=== PATIENT | female | born 1985 | race Caucasian/White ===

== ENCOUNTER 2017-01-15 01:58 | Emergency (ER) | payer OTHER ==
[2017-01-15 02:07] VITALS: BP 153/93
[2017-01-15] MEDS ORDERED: Ibuprofen TAB* 400 MG PO ONE (02:16)
[2017-01-15] MEDS ORDERED: Amoxicillin/Clavulanate TAB* 875 MG PO ONE (02:16)
--- NOTE | 2017-01-15 03:15 | ED ---
Misael Milner Adam, scribed for Mumtaz Infanteuel on 01/15/17 at 0219 . Throat Pain/Nasal Congestion - HPI Summary HPI Summary: Pt is a 31 year old female presenting with sore throat and left ear complaint. She has had a worsening sore throat for several days with difficulty swallowing. At 00:00 this morning she developed pain in the left side of her face and she states that she can not hear out of her left ear. She also c/o jaw pain and some SOB. She denies CP and fever. PMHx of HTN (controlled). No tobacco /alcohol use. - History of Current Complaint Chief Complaint: EDFluSymptoms Time Seen by Provider: 01/15/17 02:11 Hx Obtained From: Patient Onset/Duration: Gradual Onset, Lasting Days, Still Present Severity: Moderate Associated Signs And Symptoms: Positive: Dysphagia - Sore throat with difficulty swallowing. - Allergies/Home Medications Allergies/Adverse Reactions: Allergies Allergy/AdvReac Type Severity Reaction Status Date / Time No Known Allergies Allergy Verified 05/15/13 17:32 PMH/Surg Hx/FS Hx/Imm Hx Endocrine/Hematology History: Denies: Hx Diabetes, Hx Thyroid Disease Cardiovascular History: Reports: Hx Hypertension Respiratory History: Denies: Hx Asthma, Hx Chronic Obstructive Pulmonary Disease (COPD) GI History: Denies: Hx Ulcer Infectious Disease History: No Infectious Disease History: Denies: Hx Hepatitis, Hx Human Immunodeficiency Virus (HIV), Traveled Outside the [place] in Last 30 Days - Family History Known Family History: Positive: Hypertension - Social History Occupation: Employed Full-time Lives: With Family - Male friend Alcohol Use: Rare Hx Substance Use: No Substance Use Type: Reports: None Hx Tobacco Use: No Smoking Status (MU): Never Smoked Tobacco Review of Systems Negative: Fever Positive: Sore Throat - With difficulty swallowing, Ear Ache Negative: Chest Pain Positive: Shortness Of Breath Positive: Myalgia - Pain in left side of face and jaw All Other Systems Reviewed And Are Negative: Yes Physical Exam Triage Information Reviewed: Yes Vital Signs On Initial Exam: Initial Vitals Temp Pulse Resp BP Pulse Ox 98.1 F 91 18 153/93 98 01/15/17 02:02 01/15/17 02:02 01/15/17 02:02 01/15/17 02:02 01/15/17 02:02 Vital Signs Reviewed: Yes Appearance: Positive: Well-Appearing, No Pain Distress Skin: Positive: Warm, Skin Color Reflects Adequate Perfusion, Dry Head/Face: Positive: Normal Head/Face Inspection Eyes: Positive: EOMI, GENE ENT: Positive: Other - Left ear has swollen lymph nodes. Left ear is erythematous. TM red. Otitis. Neck: Positive: Supple, Nontender Respiratory/Lung Sounds: Positive: Clear to Auscultation, Breath Sounds Present Cardiovascular: Positive: RRR, Pulses are Symmetrical in both Upper and Lower Extremities Abdomen Description: Positive: Nontender, Soft Bowel Sounds: Positive: Present Musculoskeletal: Positive: Normal, Strength/ROM Intact Neurological: Positive: Normal, Sensory/Motor Intact, Alert, Oriented to Person Place, Time Diagnostics - Vital Signs Vital Signs Temp Pulse Resp BP Pulse Ox 01/15/17 02:02 98.1 F 91 18 153/93 98 - Laboratory Lab Statement: Any lab studies that have been ordered have been reviewed, and results considered in the medical decision making process. EENT Course/Dx - Diagnoses Provider Diagnoses: Otitis media Discharge - Discharge Plan Condition: Stable Disposition: HOME Prescriptions: Amoxicillin/Clavulanate TAB* [Augmentin TAB 875*] 875 mg PO BID #20 tab Ibuprofen TAB* [Motrin TAB* 600 MG] 600 mg PO Q8H PRN #20 tab PRN Reason: Pain Patient Education Materials: Otitis Media (ED) Referrals: Monica Connors MD [Primary Care Provider] - Additional Instructions: Follow up with Dr. Connors. The documentation as recorded by the Misael major Adam accurately reflects the service I personally performed and the decisions made by Arelis aviles Emmanuel.
== END 2017-01-15 02:30 | disposition home or self-care (01) ==
LOC: ED 01:58
DX: H66.90 Otitis media, unspecified, unspecified ear (principal); R13.10 Dysphagia, unspecified; J02.9 Acute pharyngitis, unspecified; R06.02 Shortness of breath; H92.09 Otalgia, unspecified ear
CPT/HCPCS: 99282; A9270-GY

== ENCOUNTER 2017-01-22 08:10 | Emergency (ER) | payer OTHER ==
[2017-01-22 08:22] VITALS: BP 132/75
--- NOTE | 2017-01-22 08:45 | UC ---
Ear Complaint HPI - HPI Summary HPI Summary: 31 yo female seen in ER with sinus symptoms and left ear pain sinuses better here because her hearing is still abnormal only mild ear pain - History of Current Complaint Chief Complaint: UCEar Stated Complaint: EAR PAIN Time Seen by Provider: 01/22/17 08:29 Hx Obtained From: Patient Hx Last Menstrual Period: [id number] Onset/Duration: Sudden Onset, Lasting Weeks Severity Initially: Severe Severity Currently: Mild Pain Intensity: 2 Pain Scale Used: 0-10 Numeric Associated Signs/Symptoms: Positive: Hearing Loss, URI Symptoms - now resolved Related History: T & A, Other (Noted In Comments) - had myringotomies - Allergies/Home Medications Allergies/Adverse Reactions: Allergies Allergy/AdvReac Type Severity Reaction Status Date / Time No Known Allergies Allergy Verified 01/22/17 08:22 Home Medications: Home Medications Ibuprofen TAB* [Motrin TAB* 800 MG] 01/22/17 [History] Lisinopril [Lisinopril 2.5 MG-] 1 01/22/17 [History] PMH/Surg Hx/FS Hx/Imm Hx Endocrine History Of: Denies: Diabetes, Thyroid Disease Cardiovascular History Of: Reports: Hypertension Denies: Cardiac Disorders Respiratory History Of: Denies: COPD, Asthma GI/ History Of: Denies: Ulcer - Surgical History Surgical History: None - Family History Known Family History: Positive: Hypertension Negative: Cardiac Disease, Diabetes - Social History Alcohol Use: Rare Substance Use Type: None Smoking Status (MU): Never Smoked Tobacco Review of Systems Constitutional: Negative Skin: Negative Eyes: Negative ENT: Ear Ache Respiratory: Negative Cardiovascular: Negative Gastrointestinal: Negative Genitourinary: Negative Motor: Negative Neurovascular: Negative Musculoskeletal: Negative Neurological: Negative Psychological: Negative All Other Systems Reviewed And Are Negative: Yes Physical Exam Triage Information Reviewed: Yes Appearance: Well-Appearing, No Pain Distress, Well-Nourished Vital Signs: Initial Vital Signs Temp 97.9 F 01/22/17 08:16 Pulse 83 01/22/17 08:16 Resp 16 01/22/17 08:16 BP 132/75 01/22/17 08:16 Pulse Ox 100 01/22/17 08:16 Vital Signs Reviewed: Yes Eyes: Positive: Conjunctiva Clear ENT: Positive: Pharynx normal, TM bulging - left bulging. Negative: Hearing grossly normal - markedly decreased hearing left ear, Nasal congestion, Nasal drainage, TMs normal - right TM scarred, TM red, Tonsillar swelling, Tonsillar exudate, Trismus, Muffled/hoarse voice Neck exam: Normal Neck: Positive: Supple, Nontender Respiratory: Positive: Lungs clear, Normal breath sounds, No respiratory distress, No accessory muscle use Cardiovascular: Positive: RRR, No Murmur Musculoskeletal: Positive: ROM Intact, No Edema Neurological: Positive: Alert Psychological Exam: Normal Skin Exam: Normal Ear Complaint Course/Dx - Differential Dx/Diagnosis Provider Diagnoses: left serous otitis media Discharge - Discharge Plan Condition: Stable Disposition: HOME Prescriptions: Prednisone [Deltasone] 20 - 40 mg PO DAILY #15 tab Patient Education Materials: Serous Otitis Media (ED) Referrals: Monica Connors MD [Primary Care Provider] - Additional Instructions: I suggest you finish your round of antibiotics on today's exam your left ear drum is not red but it is bulging this is due to fluid in your middle ear see your MD 02/04 for follow up as planned if hearing not back to normal or markedly improved you may need ENT referrral
== END 2017-01-22 08:47 | disposition home or self-care (01) ==
LOC: UCEAST 08:10
DX: H65.92 Unspecified nonsuppurative otitis media, left ear (principal); I10 Essential (primary) hypertension
CPT/HCPCS: 99212; G0463

== ENCOUNTER 2017-01-29 14:02 | Emergency (ER) | payer OTHER | END 2017-01-29 15:05 | disposition left against medical advice (07) | LOC: UCEAST 14:02 | DX: J32.9 Chronic sinusitis, unspecified (principal); H60.91 Unspecified otitis externa, right ear; H65.92 Unspecified nonsuppurative otitis media, left ear ==

== ENCOUNTER 2017-01-29 17:25 | Emergency (ER) | payer OTHER ==
[2017-01-29 18:35] VITALS: BP 152/87
--- NOTE | 2017-01-29 19:58 | UC ---
Ear Complaint HPI - HPI Summary HPI Summary: ON 01/15 GIVEN AMOXICILLIN FOR LEFT EAR INFECTION, FEELS LIKE IT WAS GETTING BETTER, 01/22 GIVEN ORAL STEROIDS 01/26/17 TAKEN OFF OF ANTIBIOTICS BY PCP AND GIVEN NASAL STEROID. LEFT EAR IS SLOWLY IMPROVING, STILL FEELS EAR FULLNESS AND SINUS PRESSURE. NOW HAVING PAIN IN RIGHT EAR. NO FEVER. NO SORE THROAT. - History of Current Complaint Chief Complaint: UCEar Stated Complaint: EAR ACHE Time Seen by Provider: 01/29/17 19:01 Hx Obtained From: Patient Hx Last Menstrual Period: 01/25/17 Onset/Duration: Gradual Onset, Lasting Weeks, Still Present Severity Initially: Moderate Severity Currently: Moderate Associated Signs/Symptoms: Positive: Hearing Loss - MUFFLED, URI Symptoms - Allergies/Home Medications Allergies/Adverse Reactions: Allergies Allergy/AdvReac Type Severity Reaction Status Date / Time No Known Allergies Allergy Verified 01/22/17 08:22 PMH/Surg Hx/FS Hx/Imm Hx Previously Healthy: Yes Endocrine History Of: Denies: Diabetes, Thyroid Disease Cardiovascular History Of: Reports: Hypertension Denies: Cardiac Disorders Respiratory History Of: Denies: COPD, Asthma GI/ History Of: Denies: Ulcer - Surgical History Surgical History: None Surgery Procedure, Year, and Place: Tonsilectomy - Family History Known Family History: Positive: Hypertension Negative: Cardiac Disease, Diabetes - Social History Occupation: Employed Full-time Lives: With Family Alcohol Use: Rare Substance Use Type: None Smoking Status (MU): Never Smoked Tobacco - Immunization History Most Recent Influenza Vaccination: denies Review of Systems Constitutional: Negative Skin: Negative Eyes: Negative ENT: Ear Ache Respiratory: Negative Cardiovascular: Negative Gastrointestinal: Negative Genitourinary: Negative Motor: Negative Neurovascular: Negative Musculoskeletal: Negative Neurological: Negative Psychological: Negative All Other Systems Reviewed And Are Negative: Yes Physical Exam Triage Information Reviewed: Yes Appearance: Well-Appearing, No Pain Distress, Well-Nourished Vital Signs: Initial Vital Signs Temp 98.2 F 01/29/17 18:27 Pulse 79 01/29/17 18:27 Resp 16 01/29/17 18:27 BP 152/87 01/29/17 18:27 Pulse Ox 100 01/29/17 18:27 Vital Signs Reviewed: Yes Eye Exam: Normal ENT: Positive: Hearing grossly normal, Pharynx normal, TM bulging, TM dull, TM red, Other: - RIGHT EAC EDEMATOUS & ERRETHEMATOUS Dental Exam: Normal Dental: Positive: Percussion Tenderness @ Neck exam: Normal Neck: Positive: Supple Respiratory Exam: Normal Respiratory: Positive: Chest non-tender, Lungs clear, Normal breath sounds, No respiratory distress, No accessory muscle use Cardiovascular Exam: Normal Cardiovascular: Positive: RRR, No Murmur, Pulses Normal Abdominal Exam: Normal Abdomen Description: Positive: Nontender, No Organomegaly Musculoskeletal Exam: Normal Musculoskeletal: Positive: Strength Intact Neurological Exam: Normal Psychological Exam: Normal Skin Exam: Normal Ear Complaint Course/Dx - Differential Dx/Diagnosis Differential Diagnosis/HQI/PQRI: Otitis Externa, Otitis Media Provider Diagnoses: SINUSITIS. LEFT OTITIS SEROUS. RIGHT OTITIS EXTERNA Discharge - Discharge Plan Condition: Stable Disposition: HOME Prescriptions: Amoxicillin/Clavulanate TAB* [Augmentin TAB 875*] 875 mg PO BID #20 tab Neomyc/Polym/HC 1% OTIC SUSP* [Cortisporin Otic Susp 1%*] 4 drop RIGHT EAR TID # 1 btl Patient Education Materials: Sinusitis (ED), Otitis Externa (ED) Referrals: Monica Connors MD [Primary Care Provider] -
== END 2017-01-29 19:30 | disposition home or self-care (01) ==
LOC: UCEAST 17:25
DX: J32.9 Chronic sinusitis, unspecified (principal); H65.92 Unspecified nonsuppurative otitis media, left ear; H60.91 Unspecified otitis externa, right ear
CPT/HCPCS: 99212; G0463

== ENCOUNTER 2018-02-28 17:56 | Emergency (ER) | payer OTHER ==
[2018-02-28 18:05] VITALS: BP 146/88
--- NOTE | 2018-02-28 18:24 | UC ---
Back Pain HPI - HPI Summary HPI Summary: 33 y/o female presents to the urgent care c/o acute lower back pain for the past week. Pt reports she can't recall any injury. However it has happened in the past 2x. She has been to the chiropractor twice this week. Last seen was 2 days ago. She feels some relief after she sees the chiropractor, but the next day her back is worse. Pain is 8/10 now, sharp w/ movement and dull 4/10 at rest. Pt has taken Ibuprofen PO to alleviate symptoms. Last dose taken this morning at 0800am. Pt denies numbness and tingling sensation over the lower extremities, saddle anesthesia, urinary or fecal incontinence, urinary symptoms , SOB, chest pain, abdominal pain, N/V/D. LMP: about 3 weeks ago and Pt declines test. - History of Current Complaint Chief Complaint: UCBackPain Stated Complaint: back pain Time Seen by Provider: 02/28/18 18:23 Hx Obtained From: Patient Hx Last Menstrual Period: 02/07/2018 Onset/Duration: Gradual Onset, Lasting Weeks - 1 week, Still Present, Worse Since - 2 days Timing: Intermittent, Lasting Minutes Severity Initially: Mild Severity Currently: Moderate Pain Intensity: 8 Pain Scale Used: 0-10 Numeric Back Pain: Is Discrete @ - lower back, Radiates To - RT side of lower back and RT hip Character: Sharp, Spasmodic Aggravating Factor(s): Movement, Lifting, Bending, Cough Alleviating Factor(s): Rest Associated Signs And Symptoms: Positive: Negative. Negative: Swelling, Redness , Fever, Weakness, Numbness, Tingling, Flank Pain, Bladder Incontinence, Bowel Incontinence, Pain with Weight Bearing - Risk Factors AAA Risk Factors: Negative TAD Risk Factors: Negative Cauda Equina Risk Factors: Negative Epidural Abscess Risk Factors: Negative - Allergies/Home Medications Allergies/Adverse Reactions: Allergies Allergy/AdvReac Type Severity Reaction Status Date / Time No Known Allergies Allergy Verified 01/22/17 08:22 Home Medications: Home Medications Azelastine/Fluticasone DILAN(NF [Dymista(NF)] 02/28/18 [History] Mometasone NASAL (NF) [Nasonex (NF)] 1 spray 02/28/18 [History] PMH/Surg Hx/FS Hx/Imm Hx Previously Healthy: Yes - Pt denies PMHX - Surgical History Surgical History: None Surgery Procedure, Year, and Place: Tonsilectomy adnoides wisdom teeth - Family History Known Family History: Positive: Hypertension Negative: Cardiac Disease, Diabetes - Social History Occupation: Employed Full-time Lives: With Family Alcohol Use: Rare Substance Use Type: None Smoking Status (MU): Never Smoked Tobacco - Immunization History Most Recent Influenza Vaccination: denies Review of Systems Constitutional: Negative Skin: Negative Eyes: Negative ENT: Negative Respiratory: Negative Cardiovascular: Negative Gastrointestinal: Negative Genitourinary: Negative Motor: Negative Neurovascular: Negative Musculoskeletal: Decreased ROM - lower back, Other: - Acue lower back pain Neurological: Negative Psychological: Negative Is Patient Immunocompromised?: No All Other Systems Reviewed And Are Negative: Yes Physical Exam - Summary Physical Exam Summary: Vital Signs Reviewed: Yes Appearance: Well-Appearing, Well-Nourished, obese female sitting in the examining table w/o any apparent distress. Eyes: Positive: Conjunctiva Clear - PERRLA, EOMI. ENT: Positive: Normal ENT inspection, Hearing grossly normal, Pharynx normal, TMs normal, Uvula midline Neck: Positive: Supple, Nontender, No Lymphadenopathy Respiratory: Positive: Chest non-tender, Lungs clear, Normal breath sounds, No respiratory distress Cardiovascular: Positive: RRR, No Murmur, Pulses Normal, Brisk Capillary Refill Abdomen Description: Positive: Nontender, No Organomegaly, Soft. Negative: CVA Tenderness (R), CVA Tenderness (L) Bowel Sounds: Positive: Present Musculoskeletal: Positive: Strength Intact, Other: - BACK: Patient walked into the urgent care room with symmetric ambulation, No signs of limping, antalgic, able to bear weight. No signs of trauma, No masses palpated. Point tenderness at the level of L3-S1 w/ Rt side paraspinal muscle spasm at the same level, No CVAT, no flank ecchymosis . No sacroiliac notch tenderness, No saddle anesthesia.ROM: limited due to pain, Straight Leg Raise: negative. Patellar reflexes: brisk, symmetric Muscle strength lower extremities. Dorsiflexion/ plantar flexion of ankles. Heel/ toe walk. Lower extremities: Femoral, popliteal , posterior tibial, and dorsalis pedis pulses WNL. Pt refuse rectal exam Neurological: Positive: Alert, Muscle Tone Normal Psychological Exam: Normal Skin Exam: Normal Triage Information Reviewed: Yes Vital Signs: Initial Vital Signs Temp 97.4 F 02/28/18 18:00 Pulse 91 02/28/18 18:00 Resp 16 02/28/18 18:00 BP 146/88 02/28/18 18:00 Pulse Ox 100 02/28/18 18:00 Back Pain Course/Dx - Course Course Of Treatment: 3 y/o female presents to the urgent care c/o acute lower back pain for the past week. Pt reports she can't recall any injury. However it has happened in the past 2x. She has been to the chiropractor twice this week. Last seen was 2 days ago. She feels some relief after she sees the chiropractor, but the next day her back is worse. Pain is 8/10 now, sharp w/ movement and dull 4/10 at rest. Pt has taken Ibuprofen PO to alleviate symptoms. Last dose taken this morning at 0800am. Pt denies numbness and tingling sensation over the lower extremities, saddle anesthesia, urinary or fecal incontinence, urinary symptoms, SOB, chest pain, abdominal pain, N/V/D. LMP: about 3 weeks ago and Pt declines test. Hx obtained. Pt w/. Point tenderness at the level of L3-S1 w/ Rt side paraspinal muscle spasm at the same level on examination. Lumbasacral X-ray ordered, Impression:Minimal Degenerative disc disease at L2-L3, L3-L4 observed. Pt given a toradol IM inj at the clinic by the nurse. Pt tolerated well IM inj and pain decrease. Pt Rx Naproxen PO, flexeril PO and Medrol dose helio. Pt also given a PT referral. Patient was instructed to the f/u wit orthopedic in 1 week if symptoms do not improve or worsen. Patient understands and agrees. Patient is able to ambulate freely w/o aid or limp. Your BP is elevated today. please decrease salt in your diet, monitor BP and if it continues to be elevated please f/u with your PCP for further management. Plan of care was discussed with the patient and patient understands and agrees. All questions were answered at patient satisfaction. Pt left clinic hemodynamically stable. - Differential Dx/Diagnosis Differential Diagnosis/HQI/PQRI: Compressive Cord Syndrome, Herniated Disc, Strain, Sprain Provider Diagnoses: 1- Acute lower back pain. 2-Back strain. 3-Degenerative disc disease L2-L3. 4- Elevated BP w/o Hx of HTN Discharge - Sign-Out/Discharge Documenting (check all that apply): Discharge/Admit/Transfer - D/C home - Discharge Plan Condition: Stable Disposition: HOME Prescriptions: Cyclobenzaprine TAB* [Flexeril 10 MG TAB*] 10 mg PO TID PRN #21 tab PRN Reason: Spasms - Back methylPREDNISolone [Medrol Dosepak 4 MG*] 4 mg PO .SEE HELIO INSTRUCTION #1 helio Naproxen TAB* [Naprosyn 250 mg TAB*] 250 mg PO Q8H PRN #30 tab PRN Reason: Pain Patient Education Materials: Acute Low Back Pain (ED), Low-Sodium Diet (ED), Muscle Spasm (ED), Degenerative Disc Disease (ED) Referrals: Daphnie Dorado MD [Medical Doctor] - 1 Week Monica Connors MD [Primary Care Provider] - 1 Week Additional Instructions: 1- Please take Naproxen PO as directed after meals for pain. 2- Take Flexeril PO as directed for muscle spasm. Please do not drive while taking the medication. 3- Wear a back support. Avoid strenuous exercise of heavy lifting. 4- Please follow up with Orthopedic Dr Dorado or your PCP in 1 week if not improvement of symptoms, for further management. 5-Your BP is elevated today. please decrease salt in your diet, monitor BP and if it continues to be elevated please f/u with your PCP for further management - Billing Disposition and Condition Condition: STABLE Disposition: HOME
[2018-02-28] MEDS ORDERED: Ketorolac INJ* 30 MG/ML 1 ML VIAL IM ONE (18:47)
--- NOTE | 2018-02-28 19:24 | RAD ---
Indication: Low back pain. 5 views of lumbar spine demonstrates vertebral bodies to be normal in height. Disc space narrowing at L2-L3 and L3-L4 with minimal ventral osteophyte formation is noted. IMPRESSION: No fracture of the lumbar spine is noted. Minimal degenerative disc disease at L2-L3 and L3-L4.
== END 2018-02-28 19:50 | disposition home or self-care (01) ==
LOC: UCEAST 17:56
DX: S39.012A Strain of muscle, fascia and tendon of lower back, initial encounter (principal); X58.XXXA Exposure to other specified factors, initial encounter; Y93.9 Activity, unspecified; Y92.9 Unspecified place or not applicable; M51.36 Other intervertebral disc degeneration, lumbar region
CPT/HCPCS: 72110; 96372; 99212; G0463; J1885

== ENCOUNTER 2018-10-27 14:02 | Emergency (ER) | payer OTHER ==
[2018-10-27 14:30] VITALS: BP 143/85
--- NOTE | 2018-10-27 14:47 | UC ---
Throat Pain/Nasal Brent HPI - HPI Summary HPI Summary: Treated sinusitis/bronchitis late September with antibiotic , possibly doxy, and 12 day tapering steroids. Symptoms have now recurred. hx of recurrent sinus infections, up to 6 per year, has seen ENT in the past. Reviewed past visits, and she had a normal CT sinus study March 2017. Uses nasal saline rinses, inconsistent use of antihistamines, has follow up pending with Dr. Connors. - History of Current Complaint Chief Complaint: UCRespiratory Stated Complaint: SINUS COMPLAINT Time Seen by Provider: 10/27/18 14:36 Hx Obtained From: Patient Hx Last Menstrual Period: 10/21/18 ?: No Onset/Duration: Gradual Onset, Lasting Days Severity: Moderate Pain Intensity: 5 Cough: Nonproductive - mild, increasing. Associated Signs & Symptoms: Positive: Sinus Discomfort, Nasal Discharge - Epiglottits Risk Factors Epiglottis Risk Factors: Negative - Allergies/Home Medications Allergies/Adverse Reactions: Allergies Allergy/AdvReac Type Severity Reaction Status Date / Time No Known Allergies Allergy Verified 10/27/18 14:24 Home Medications: Home Medications Topiramate TAB(*) [Topamax 25 MG tab] 25 mg PO BEDTIME 10/27/18 [History Confirmed 10/27/18] PMH/Surg Hx/FS Hx/Imm Hx Previously Healthy: Yes Cardiovascular History: Hypertension - has been on and off lisinopril. With treatment, frequently has dizziness. Monitoring of BP over past months has shown usually in normal range. Neurological History: Migraine - uses topiramate daily and a triptan prn - Surgical History Surgical History: Yes Surgery Procedure, Year, and Place: Tonsilectomy adnoides wisdom teeth - Family History Known Family History: Positive: Hypertension Negative: Cardiac Disease, Diabetes - Social History Occupation: Employed Full-time Lives: With Family Alcohol Use: Rare Substance Use Type: None Smoking Status (MU): Never Smoked Tobacco - Immunization History Most Recent Influenza Vaccination: denies Review of Systems All Other Systems Reviewed And Are Negative: Yes Constitutional: Positive: Negative Skin: Positive: Negative Eyes: Positive: Negative ENT: Positive: Sore Throat, Ear Ache - off and on, Nasal Discharge Respiratory: Positive: Cough Cardiovascular: Positive: Negative Gastrointestinal: Positive: Negative Genitourinary: Positive: Negative Motor: Positive: Negative Neurovascular: Positive: Negative Musculoskeletal: Positive: Negative Neurological: Positive: Headache - facial pain Psychological: Positive: Negative Is Patient Immunocompromised?: No Physical Exam Triage Information Reviewed: Yes Appearance: Well-Appearing - overweight. Congested, Pain Distress - mild Vital Signs: Initial Vital Signs Temp 98.1 F 10/27/18 14:25 Pulse 76 10/27/18 14:25 Resp 16 10/27/18 14:25 BP 143/85 10/27/18 14:25 Pulse Ox 100 10/27/18 14:25 ENT: Positive: Pharyngeal erythema Neck: Positive: Supple, Nontender, Enlarged Nodes @ - right tonsillar. Possible mild thyroid enlargement right lobe. Respiratory: Positive: Lungs clear, Normal breath sounds Cardiovascular: Positive: RRR, No Murmur Musculoskeletal Exam: Normal Neurological: Positive: Alert Psychological Exam: Normal Throat Pain/Nasal Course/Dx - Course Course Of Treatment: steroids for sinus pressure; antibiotics on reserve. - Differential Dx/Diagnosis Differential Diagnosis/HQI/PQRI: Pharyngitis, Sinusitis, URI Provider Diagnosis: Chronic sinusitis of both maxillary sinuses Discharge - Sign-Out/Discharge Documenting (check all that apply): Patient Departure All imaging exams completed and their final reports reviewed: No Studies - Discharge Plan Condition: Stable Disposition: HOME Prescriptions: Amoxicillin/Clavulanate TAB* [Augmentin TAB 875*] 875 mg PO BID #20 tab predniSONE TAB* [Deltasone 20 MG TAB*] 2 tab PO DAILY #10 tab Patient Education Materials: Sinusitis (ED) Referrals: Monica Connors MD [Primary Care Provider] - Additional Instructions: Follow up as arragned with Dr. Connors for evaluation of recurrent sinusitis and possible allergies. Ensure follow up blood pressure readings. Begin use of prednisone. You might hold antibiotic use for several days, and begin if you develop fever or increasing cough. It is possible that this is viral illness. - Billing Disposition and Condition Condition: STABLE Disposition: Home
== END 2018-10-27 15:10 | disposition home or self-care (01) ==
LOC: UCCORT 14:02
DX: J32.0 Chronic maxillary sinusitis (principal)
CPT/HCPCS: 99212; G0463

== ENCOUNTER 2018-12-05 16:16 | Emergency (ER) | payer OTHER ==
--- OUTSIDE RECORDS SUMMARY | 2018-12-05 16:25 | XMS REPORT | Continuity of Care Document ---
:1985 External Reference #:[id number] Author Name Isauro Santos MD Address [address] [place] [address] Care Team Providers Name Role Phone Monica Mcneal M.D. Care Team Information Funeral Director And Embalmer Unavailable Monica Mcneal M.D. Primary Care Physician Unavailable Payers Type Date Identification Numbers Payment Provider Subscriber Policy Number: [id number] [facility] Menendez Group Number: [id number] [facility] [id number] Group Name: [id number] [place] [address] PayID: [id number] Advance Directives Description No Information Available Problems Date Description Provider Status Onset: 02/15/2017 Essential hypertension Isauro Santos MD Active Onset: 02/15/2017 Chronic rhinitis Isauro Santos MD Active Onset: 02/15/2017 Lymphadenopathy Isauro Santos MD Active Onset: 02/15/2017 Other specified disorders of Eustachian Isauro Santos MD Active tube, bilateral Onset: 03/11/2017 Chronic maxillary sinusitis Isauro Santos MD Active Onset: 04/09/2017 Hypertrophy of nasal turbinates Isauro Santos MD Active Onset: 11/17/2018 Atypical facial pain Isauro Santos MD Active Family History Date Family Member(s) Problem(s) Comments General Hearing Loss General Thyroid Disease Social History Type Date Description Comments Sex Unknown Occupation Attendant [employer] Tobacco Use Start: Unknown Never Smoked Cigarettes Tobacco Use Start: Unknown Never Smoked Cigars Tobacco Use Start: Unknown Never Smoked A Pipe Smokeless Tobacco Never Used Smokeless Tobacco ETOH Use Currently rarely consumes alcohol Allergies, Adverse Reactions, Alerts Description No Known Drug Allergies Medications Medication Date Status Form Strength Qnty SIG Indications Ordering Provider Ibuprofen 00/ Active Tablets 600mg Take One Unknown 0000 Tablet By Mouth Every 8 Hours as Needed For Pain Topamax 00/ Active Tablets 25mg 25 mg bid Unknown 0000 for one week, then 50 mg bid for one week, then 100 mg bid as tolerated. stay on lower dose for confusion Azelastine 04/09/ Hx Solution 0.15% 90ml 2 sprays in J31.0 Isauro HCL (Nasal) 2017 - each [place], 11/16/ nostril one MD 2018 times per day Mometasone 02/15/ Hx Suspension 50mcg/Act 17gm 2 puff J31.0 Siauro Furoate 2017 - every day [place], 11/16/ both sides MD 2018 Mometasone / Hx Suspension 50mcg/Act Sanderson Two Unknown Furoate 0000 - Sprays In 2017 Nostril Every Day Lypsor / Hx 25mg Elizabet 0000 Aj Anderson M.D. 2018 Metoprolol / Hx Tablets ER 25mg Take One Unknown Succinate ER 0000 - 24HR Tablet By 11/16/ Mouth Every 2019 Day Then After 1 Week Increase To Take Immunizations Description No Information Available Vital Signs Date Vital Result Comment 11/17/2018 2:31pm Weight 182.00 lb Weight 82.555 kg Height 66.5 inches 5'6.50" Height in cm's 168.9 cm BMI (Body Mass Index) 28.9 kg/m2 10/28/2017 11:01am BP Systolic 145 mmHg BP Diastolic 91 mmHg Heart Rate 79 /min Respiratory Rate 17 /min Weight 176.00 lb Weight 79.834 kg Height 66.5 inches 5'6.50" Height in cm's 168.9 cm BMI (Body Mass Index) 28.0 kg/m2 04/09/2017 8:59am BP Systolic 135 mmHg BP Diastolic 84 mmHg Heart Rate 71 /min Respiratory Rate 17 /min Weight 176.00 lb Weight 79.834 kg Height 66.5 inches 5'6.50" Height in cm's 168.9 cm BMI (Body Mass Index) 28.0 kg/m2 02/15/2017 9:59am BP Systolic 152 mmHg BP Diastolic 92 mmHg Heart Rate 80 /min Weight 176.00 lb Weight 79.834 kg Height 66.5 inches 5'6.50" Height in cm's 168.9 cm BMI (Body Mass Index) 28.0 kg/m2 Results Description No Information Available Procedures Description No Information Available Encounters Type Date Location Provider Dx Diagnosis Office Visit 11/17/2018 [facility] Isauro Santos J31.0 Chronic rhinitis 3:15p 11/08/07 MD J34.3 Hypertrophy of nasal turbinates G50.1 Atypical facial pain Office Visit 10/28/2017 11:00a [facility] 11/08/07 Isauro Santos J31.0 Chronic MD rhinitis J34.3 Hypertrophy of nasal turbinates Office Visit 04/09/2017 [facility] Isauro Santos H69.83 Other specified 8:45a 11/08/07 disorders of Eustachian tube, bilateral J31.0 Chronic rhinitis J34.3 Hypertrophy of nasal turbinates Office Visit 03/11/2017 [facility] Isauro Santos H69.83 Other specified 9:15a 11/08/07 disorders of Eustachian tube, bilateral J31.0 Chronic rhinitis J32.0 Chronic maxillary sinusitis Office Visit 02/15/2017 10:00a [facility] 11/08/07 Michael Bacon31.0 Chronic MD rhinitis H69.83 Other specified disorders of Eustachian tube, bilateral R59.0 Localized enlarged lymph nodes Plan of Treatment Future Appointment(s):12/08/2018 3:30 pm - Isauro Santos MD at [facility] 2:10 pm - Allergy at [facility] 11/08/800 - Isauro Santos MDJ31.0 Chronic rhinitisComments:Patient is scheduled for allergy testing. Hopefully this will give an indication of whether allergies may be contributing to her symptoms in the future she may be a candidate for management of atypical facial pain possible nerve blocks were briefly discussed.J34.3 Hypertrophy of nasal cjhzyfctbuH07.1 Atypical facial pain
[2018-12-05 16:45] LABS: Influenza A Molecular NEGATIVE (Negative); Influenza B Molecular NEGATIVE (Negative)
--- NOTE | 2018-12-05 16:49 | UC ---
Nausea/Vomiting/Diarrhea HPI - HPI Summary HPI Summary: 33 year old female presents for sudden onset of nausea, vomiting, and abdominal cramping around 15:00 today. Associated with some chills and lightheadedness. States she was caring for a friend's child yesterday who was sick with vomiting and diarrhea. Denies fever, chest pain, shortness of breath, diarrhea, dysuria, frequency, or urgency. LMP 11/12/2018. States she is not sexually active. - History of Current Complaint Chief Complaint: UCGI Stated Complaint: VOMITING,NAUSEA,CHILLS Time Seen by Provider: 12/05/18 16:44 Hx Obtained From: Patient Hx Last Menstrual Period: 11/12/18 Pain Intensity: 0 - Allergies/Home Medications Allergies/Adverse Reactions: Allergies Allergy/AdvReac Type Severity Reaction Status Date / Time No Known Allergies Allergy Verified 12/05/18 16:24 Home Medications: Home Medications Topiramate [Topamax] 1 tab BEDTIME 12/05/18 [History Confirmed 12/05/18] PMH/Surg Hx/FS Hx/Imm Hx Previously Healthy: Yes - Denies significant PMH - Surgical History Surgical History: Yes Surgery Procedure, Year, and Place: Tonsilectomy & Adenoids; [place] teeth - Family History Known Family History: Positive: Hypertension Negative: Cardiac Disease, Diabetes - Social History Occupation: Employed Full-time Lives: With Family Alcohol Use: Occasionally Alcohol Amount: 1 drink/week Substance Use Type: None Smoking Status (MU): Never Smoked Tobacco - Immunization History Most Recent Influenza Vaccination: denies Review of Systems All Other Systems Reviewed And Are Negative: Yes Constitutional: Positive: Fever - Subjective, Chills Skin: Negative: Rash Respiratory: Negative: Shortness Of Breath, Cough Cardiovascular: Negative: Palpitations, Chest Pain Gastrointestinal: Positive: Vomiting, Nausea. Negative: Abdominal Pain, Diarrhea Genitourinary: Negative: Dysuria, Hematuria, Frequency, Urgency Musculoskeletal: Positive: Negative Neurological: Positive: Negative Is Patient Immunocompromised?: No Physical Exam - Summary Physical Exam Summary: GENERAL APPEARANCE: Well developed, well nourished, alert and cooperative, and appears to be in no acute distress. EYES: Conjunctiva clear. no drainage. Vision is grossly intact. EARS: External auditory canals and tympanic membranes clear, hearing grossly intact. NOSE: No nasal discharge. THROAT: Oral cavity and pharynx normal. No inflammation, swelling, exudate, or lesions. Teeth and gingiva in good general condition. NECK: Neck supple, non-tender without lymphadenopathy. CARDIAC: Normal S1 and S2. No S3, S4 or murmurs. Rhythm is regular. There is no peripheral edema, cyanosis or pallor. Extremities are warm and well perfused. Capillary refill is less than 2 seconds. LUNGS: Clear to auscultation without rales, rhonchi, wheezing or diminished breath sounds. ABDOMEN: Positive bowel sounds. Soft, nondistended. Mild generalized abdominal tenderness without guarding or rebound. No masses or hepatosplenomegally. No CVA tenderness. MUSKULOSKELETAL: ROM intact to all extremities. No joint erythema or tenderness. Normal muscular development. Normal gait. SKIN: Skin normal color, texture and turgor with no lesions or eruptions. Triage Information Reviewed: Yes Vital Signs: Initial Vital Signs Temp 97.9 F 12/05/18 16:24 Pulse 94 12/05/18 16:24 Resp 19 12/05/18 16:24 BP 145/88 12/05/18 16:24 Pulse Ox 100 12/05/18 16:24 Vital Signs Reviewed: Yes Naus/Vom/Diarrhea Course/Dx - Course Course Of Treatment: 33 year old female presents for sudden onset of nausea, vomiting, and abdominal cramping around 15:00 today. Associated with some chills and lightheadedness. States she was caring for a friend's child yesterday who was sick with vomiting and diarrhea. Denies fever, chest pain, shortness of breath, diarrhea, dysuria, frequency, or urgency. LMP 11/12/2018. States she is not sexually active. Afebrile. VSS. Exam reveals an alert adult female in no acute distress. She had some mild generalized abdominal tenderness without rebound or guarding exam otherwise unremarkable. With her recent sick contact her symptoms are likely from a viral gastroenteritis however discussed with patient that I could not fully rule out other causes. She was given a dose of ondansetron in the clinic with improvement in symptoms. She was able to tolerate PO fluids without any additional vomiting. Will discharge home with ondansetron. She is to follow-up with her primary care provider in 3-5 days if symptoms persist. Anticipatory guidance and warning symptoms were reviewed with the patient. Verbalizes understanding and agrees with plan of care. - Differential Dx/Diagnosis Differential Diagnoses - Female: Appendicitis, Gall Bladder Disease, Gastroenteritis (Viral), Gastroenteritis (Bacterial), Vomiting, Peptic Ulcer Disease Provider Diagnosis: Nausea & vomiting Condition At Discharge: Stable Discharge - Sign-Out/Discharge Documenting (check all that apply): Patient Departure All imaging exams completed and their final reports reviewed: No Studies - Discharge Plan Condition: Stable Disposition: HOME Prescriptions: Ondansetron ODT TAB* [Zofran 4 MG Odt TAB*] 8 mg PO Q8H PRN #6 tab.odt PRN Reason: Nausea/Vomiting Patient Education Materials: Acute Nausea and Vomiting (ED) Referrals: Monica Connors MD [Primary Care Provider] - Additional Instructions: I suspect that your symptoms are a viral gastroenteritis however as we discussed I cannot fully rule out other causes at this time. Take ondansetron 4 mg PO every 8 hours as needed for nausea and vomiting. You were given a dose in the clinic. Drink plenty of fluids. Try to drink small amounts frequently to avoid filling your stomach to full which can cause vomiting. If you are still having vomiting, start with a clear liquid diet including soup broths, Jello, popsicles, and alize-gaurav with carbonation stirred out of it. You may then advance to a bland diet including saltine crackers, toast, bananas , rice, and applesauce. Then return to a normal diet as tolerated. Follow up here or with your primary care provider in 3-5 days if symptoms persist. Seek immediate medical attention in the emergency room if you develop fever greater than 100.5 F, have severe abdominal pain, persistent vomiting, blood in your vomit or stool, or any worsening of symptoms. - Billing Disposition and Condition Condition: STABLE Disposition: Home
[2018-12-05] MEDS ORDERED: Ondansetron ODT TAB* 4 MG PO ONE (16:57)
[2018-12-05 17:31] VITALS: BP 137/78
== END 2018-12-05 17:46 | disposition home or self-care (01) ==
LOC: UCCORT 16:16
DX: R11.2 Nausea with vomiting, unspecified (principal); R10.9 Unspecified abdominal pain; R42 Dizziness and giddiness
CPT/HCPCS: 99212; A9270-GY; G0463

== ENCOUNTER 2019-04-09 08:53 | Emergency (ER) | payer OTHER ==
[2019-04-09 09:23] VITALS: BP 141/87
--- NOTE | 2019-04-09 09:25 | UC ---
Eye Complaint HPI - HPI Summary HPI Summary: 34 y/o female presents to the urgent care c/o R lower lid swelling and painful for the past 3 days. She has been applying warm compresses w/o any improvement. Yesterday she saw a little white spot on her RT lower eyelid. Pain at touch is 3/10. Pt denies photophobia, TOMAS, visual disturbances, dizziness, chest pain , abdominal pain, N/V/d. - History of Current Complaint Chief Complaint: UCEye Stated Complaint: EYE CONCERN Time Seen by Provider: 04/09/19 09:24 Hx Obtained From: Patient Hx Last Menstrual Period: 04/04/19 ?: No Onset/Duration: Gradual Onset, Lasting Days - 3 days, Still Present, Worse Since - yesterday Timing: Constant Severity Initially: Mild Severity Currently: Mild Pain Intensity: 3 Pain Scale Used: 0-10 Numeric Location of Injury: Eye Lid (lower) - RT lower eyelid swollen and painful Aggravating Factor(s): Blinking Alleviating Factor(s): Nothing Associated Signs And Symptoms: Positive: Drainage (Purulent) - mild this morning when she woke up, Swelling - RT lower eyelid. Negative: Photophobia, Vision Impairment Bilateral, Fever - Risk Factors Penetrating Injury Risk Factor: Negative Globe Rupture Risk Factors: Negative Acute Glaucoma Risk Factors: Negative Optic Artery Occlusion Risk Factors: Negative - Allergies/Home Medications Allergies/Adverse Reactions: Allergies Allergy/AdvReac Type Severity Reaction Status Date / Time No Known Allergies Allergy Verified 04/09/19 09:18 PMH/Surg Hx/FS Hx/Imm Hx Previously Healthy: Yes - Pt denies PMHX - Surgical History Surgical History: Yes Surgery Procedure, Year, and Place: Tonsilectomy & Adenoids; [place] teeth - Family History Known Family History: Positive: Hypertension Negative: Cardiac Disease, Diabetes - Social History Occupation: Employed Full-time Lives: With Family Alcohol Use: Occasionally Alcohol Amount: 1 drink/week Substance Use Type: None Smoking Status (MU): Never Smoked Tobacco - Immunization History Most Recent Influenza Vaccination: denies Review of Systems All Other Systems Reviewed And Are Negative: Yes Constitutional: Positive: Negative Skin: Positive: Negative Eyes: Positive: Drainage - mild RT eye drainage this morning when she woke up, Other - RT lower eyelid painful and swollen ENT: Positive: Negative Respiratory: Positive: Negative Cardiovascular: Positive: Negative Gastrointestinal: Positive: Negative Genitourinary: Positive: Negative Motor: Positive: Negative Neurovascular: Positive: Negative Musculoskeletal: Positive: Negative Neurological: Positive: Negative Psychological: Positive: Negative Is Patient Immunocompromised?: No Physical Exam - Summary Physical Exam Summary: Vital Signs Reviewed: Yes General: Well appearing, well nourished female in no apparent pain distress Eyes: Positive: Conjunctiva Inflamed - Visual acuity: WNL,Visual tirado: full to confrontation.mild periorbital soft tissue swelling at the RT lower eyelid with erythema and white small pustule in the medial side of eyelid, tender to palpation. PERRLA, EOMI intact w/out limitation or complaint of pain. eyelashes clear. mild tearing and yellowish drainage observed. No ciliary flush. No chemosis, No photophobia. Normal fundoscopic exam; no proptosis, exophthalmos, nystagmus. ENT: Positive: Normal ENT inspection, Hearing grossly normal, Pharynx normal, Nasal congestion, Nasal drainage - clear, TMs normal - B/L external ear canal clear , TM's WNL. Negative: Tonsillar swelling, Tonsillar exudate Neck: Positive: Supple, Nontender, No Lymphadenopathy Respiratory: Positive: Chest nontender, Lungs clear, Normal breath sounds, No respiratory distress Cardiovascular: Positive: RRR, No Murmur, Pulses Normal, Brisk Capillary Refill Abdomen Description: Positive: Nontender, No Organomegaly, Soft. Negative: CVA Tenderness (R), CVA Tenderness (L) Bowel Sounds: Positive: Present Musculoskeletal: Positive: Strength Intact, ROM Intact, No Edema Neurological Exam: Normal Psychological Exam: Normal Skin Exam: Normal Triage Information Reviewed: Yes Vital Signs: Initial Vital Signs Temp 98.1 F 04/09/19 09:19 Pulse 69 04/09/19 09:19 Resp 18 04/09/19 09:19 BP 141/87 04/09/19 09:19 Pulse Ox 99 04/09/19 09:19 Eye Complaint Course/Dx - Course Course Of Treatment: 34 y/o female presents to the urgent care c/o R lower lid swelling and painful for the past 3 days. She has been applying warm compresses w/o any improvement. Yesterday she saw a little white spot on her RT lower eyelid. Pain at touch is 3/10. Pt denies photophobia, TOMAS, visual disturbances, dizziness, chest pain , abdominal pain, N/V/d. Hx obtained. Pt with a RT lower eyelid internal hordeolum on examination. Pt Rx Bacitracin Ophthalmic Ointment. PT advised to apply warm compresses and massage the eye with gentle pressure 4-5 times for 10 -15min throughout the day. Then apply ABX and if not improvement of symptoms to f/u with range feeder Dr Saul in 3 days for further evaluation and treatment. Pt's BP is elevated today advised to decrease salt in diet, monitor BP and f/u with PCP for further management. PT understood and agreed with plan of care. - Differential Dx/Diagnosis Differential Diagnosis/HQI/PQRI: Conjunctivitis, Corneal Abrasion, Foreign Body , Orbital Cellulitis, Other - hordeolum Provider Diagnosis: Hordeolum internum right lower eyelid, Elevated BP without diagnosis of hypertension Discharge - Sign-Out/Discharge Documenting (check all that apply): Patient Departure - D/C home All imaging exams completed and their final reports reviewed: No Studies - Discharge Plan Condition: Stable Disposition: HOME Prescriptions: Erythromycin OPTH OINT* [Erythromycin 0.5% OPTH OINT*] 1 applic RIGHT EYE TID # 1 ophth.oint Patient Education Materials: [place] (ED) Referrals: Monica Connors MD [Primary Care Provider] - 3 Days Rosita Saul MD [Medical Doctor] - 3 Days Additional Instructions: 1-Please apply ophthalmic ointment in your RT eye as directed. Please apply warm compresses and massage the eye with gentle pressure 4-5 times for 10-15min throughout the day 2- If you do not improve or if symptoms worsen please f/u with range feeder Dr Saul in 3 days for further evaluation and treatment 3- Your BP is elevated today. please decrease salt in your diet, monitor BP and if it continues to be elevated please f/u with your PCP for further management. - Billing Disposition and Condition Condition: STABLE Disposition: Home - Attestation Statements Provider Attestation: Per institutional requirements, I have reviewed the chart, however, I was not consulted specifically or made aware of this patient by the midlevel provider. I did not personally evaluate, interact with , or disposition this patient.
== END 2019-04-09 09:43 | disposition home or self-care (01) ==
LOC: UCCORT 08:53
DX: H00.022 Hordeolum internum right lower eyelid (principal); R03.0 Elevated blood-pressure reading, without diagnosis of hypertension
CPT/HCPCS: 99212; G0463